=== PATIENT | male | born 1975 | race Caucasian/White ===

== ENCOUNTER 2019-05-21 12:26 | Inpatient (IN) ==
[2019-05-21] MEDS ORDERED: ASPIRIN PO ONE (12:33)
[2019-05-21] MEDS ORDERED: NITROGLYCERIN SL PRN (12:42)
--- NOTE | 2019-05-21 12:47 | PROVIDER DOCUMENTATION ---
HPI-Chest Pain - General Chief Complaint: Chest Pain Stated Complaint: CHEST PAIN Time Seen by Provider: 05/21/19 12:35 Source: patient Allergies/Adverse Reactions: Patient Allergies Allergy/AdvReac Type Severity Reaction Status Date / Time No Known Allergies Allergy Verified 05/21/19 12:30 Home Medications: Home Medication List Medication Instructions Recorded Confirmed Last Taken Type Unobtainable [Home Meds 05/21/19 05/21/19 Unknown History Unobtainable] - History of Present Illness-CP Nature of Presenting Problem: 44 y/o WM c/o lt sided CP that radiates to lt shoulder and started about 1 hr ago. Pt has hx of CAD with PR but states that todays pain is not as bad as previous pain from PR. Pt admits that he has been out of his BP meds for 2 days but continues to smoke and has remote hx of Drug use. Location: reports: other (Lt chest) Chest Pain Radiation: reports: shoulders (Lt) Quality of Pain: reports: aching Severity in ED: mild Onset/Duration: 1 hour ago Timing: still present Context/Activities at Onset: reports: light activity Modifying Factors: improves with: nothing Associated Symptoms: reports: denies symptoms Nitro Today/Relief: no nitro taken today Aspirin Treatment Today: 325 mg x 1 Prior Chest Pain/Cardiac Workup: reports: heart attack Similar Symptoms Previously?: Yes Recently Seen Here or By Another Healthcare Provider: No Review of Systems - Adult - REVIEW OF SYSTEMS - ADULT Constitutional: reports: no symptoms reported, see HPI Eyes: reports: no symptoms reported, see HPI Ears, Nose, Mouth & Throat: reports: no symptoms reported, see HPI Cardiovascular: reports: see HPI, chest pain Respiratory: reports: no symptoms reported, see HPI Gastrointestinal: reports: no symptoms reported, see HPI Genitourinary: reports: no symptoms reported, see HPI Musculoskeletal: reports: no symptoms reported, see HPI Integumentary: reports: no symptoms reported, see HPI Neurological: reports: no symptoms reported, see HPI Psychiatric: reports: no symptoms reported, see HPI Endocrine: reports: no symptoms reported, see HPI Hematologic/Lymphatic: reports: no symptoms reported, see HPI Allergic/Immunologic: reports: no symptoms reported, see HPI All Other Systems: Reviewed and Negative Past History - Adult - PAST MEDICAL HISTORY-ADULT Review of Records: reports: Nursing Assessment Review, Medications Reviewed, Social history reviewed & non-contributory. Physical Exam-General - PHYSICAL EXAM-ADULT Initial Vital Signs Reviewed: Yes - CONSTITUTIONAL General Appearance: appears well, alert, no apparent distress - EYES Eyes: PERRL/EOMI - HEAD, EARS, NOSE, MOUTH & THROAT HENMT: normocephalic/atraumatic, moist mucous membranes - NECK Neck: non-tender, full range of motion, supple, normal inspection - RESPIRATORY Respiratory: chest non-tender, lungs clear, normal breath sounds, no pleuratic chest pain, no respiratory distress, no accessory muscle use - CARDIOVASCULAR Cardiovascular: normal peripheral pulses, no edema, no gallop, no JVD, no murmur , tachycardia (130) - GASTROINTESTINAL (ABDOMEN) Abdominal Exam: normal bowel sounds, non tender, soft, no organomegaly, no pulsatile mass - LYMPHATIC Lymphatic: no adenopathy - MUSCULOSKELETAL Back Exam: normal inspection, no CVA tenderness, no vertebral tenderness Extremity: normal range of motion, non-tender, normal gait, normal inspection, no pedal edema, no calf tenderness, normal capillary refill - SKIN Integumentary: normal color, normal turgor - NEUROLOGIC Neurologic: client advisor II-XII nml as tested, grossly normal, no motor/sensory deficits - PSYCHIATRIC Psych/Mental Status: normal mood/affect, normal thought content, normal thought process, oriented x 3 - HEART Score HEART Score: History: Moderately Suspicious HEART Score: ECG: Non-Specific Repolarization Disturbance/LBBB/PM HEART Score: Age: 45-65 Years HEART Score: Risk Factors for Atherosclerotic Disease: > or = 3 Risk Factors or History of Atherosclerotic Disease HEART Score: Troponin: < or = Normal Limit Total HEART Score:: 5 Progress - PLAN OF CARE/RESULTS Progress/Plan/Lab Results: Vital Signs - 8 hr 05/21/19 12:27 05/21/19 12:30 05/21/19 12:31 Temperature 98.5 F Pulse Rate 130 H Respiratory Rate 16 Blood Pressure 197/116 O2 Sat by Pulse Oximetry 05/21/19 13:30 Temperature Pulse Rate 130 H Respiratory Rate 27 H Blood Pressure 178/133 O2 Sat by Pulse Oximetry 97 Laboratory Results - last 24 hr 05/21/19 05/21/19 05/21/19 12:40 12:40 12:40 WBC 12.82 H RBC 5.29 Hgb 16.2 Hct 48.7 MCV 92.1 MCH 30.6 MCHC 33.3 RDW Std Deviation 13.7 Plt Count 174 MPV 11.3 H Immature Gran % (Auto) 0.2 Neut % (Auto) 76.9 H Lymph % (Auto) 16.7 L [place] % (Auto) 5.6 Eos % (Auto) 0.2 Baso % (Auto) 0.4 Immature Gran # (Auto) 0.02 Neut # (Auto) 9.86 H Lymph # (Auto) 2.14 [place] # (Auto) 0.72 H Eos # (Auto) 0.03 Baso # (Auto) 0.05 PT INR PTT (Actin FS) Sodium 143 Potassium 3.8 Chloride 101 Carbon Dioxide 24 L Anion Gap 18 BUN 20 Creatinine 1.0 Estimated GFR/1.73 m2 > 60 BUN/Creatinine Ratio 20 Glucose 125 H Calculated Osmolality 289 Calcium 10.0 Total Bilirubin 0.90 AST 50 H ALT 35 Alkaline Phosphatase 97 Creatine Kinase 1359 H Creatine Kinase Index 1.4 CK-MB (CK-2) 19.36 H Troponin T [id number] Pept 732 H Total Protein 8.4 H Albumin 5.3 H Globulin 3.0 Albumin/Globulin Ratio 2.0 Urine Opiates Screen Ur Oxycodone Screen Urine Methadone Screen U Propoxyphene Qual Ur Barbituates Screen Ur Tricyclics Screen Ur Phencyclidine Scrn Ur Amphetamines Screen U Methamphetamines Scrn U Benzodiazepines Scrn Urine Cocaine Screen U Cannabinoids Screen 05/21/19 05/21/19 05/21/19 12:40 12:40 13:22 WBC RBC Hgb Hct MCV MCH MCHC RDW Std Deviation Plt Count MPV Immature Gran % (Auto) Neut % (Auto) Lymph % (Auto) [place] % (Auto) Eos % (Auto) Baso % (Auto) Immature Gran # (Auto) Neut # (Auto) Lymph # (Auto) [place] # (Auto) Eos # (Auto) Baso # (Auto) PT 13.6 INR 0.99 PTT (Actin FS) 27.5 Sodium Potassium Chloride Carbon Dioxide Anion Gap BUN Creatinine Estimated GFR/1.73 m2 BUN/Creatinine Ratio Glucose Calculated Osmolality Calcium Total Bilirubin AST ALT Alkaline Phosphatase Creatine Kinase Creatine Kinase Index CK-MB (CK-2) Troponin T < 0.010 [id number] Pept Total Protein Albumin Globulin Albumin/Globulin Ratio Urine Opiates Screen NONE DETECTED Ur Oxycodone Screen NONE DETECTED Urine Methadone Screen NONE DETECTED U Propoxyphene Qual NONE DETECTED Ur Barbituates Screen NONE DETECTED Ur Tricyclics Screen NONE DETECTED Ur Phencyclidine Scrn NONE DETECTED Ur Amphetamines Screen PRESUMPTIVE POSITIVE A U Methamphetamines Scrn PRESUMPTIVE POSITIVE A U Benzodiazepines Scrn NONE DETECTED Urine Cocaine Screen NONE DETECTED U Cannabinoids Screen NONE DETECTED Orders Category Date Time Status Cardiac Monitoring DIRECTED Care 05/21/19 12:33 Active Oxygen Therapy- ED Nursing DIRECTED Care 05/21/19 12:33 Active Saline Loc NOW Care 05/21/19 12:33 Active CHEST-2 VIEWS [RAD] Stat Exams 05/21/19 12:33 Completed CBC WITH ELECTRONIC DIFF [HEME] Stat Lab 05/21/19 12:40 Completed CK PROFILE [SP CHEM] Stat Lab 05/21/19 12:40 Completed COMPREHENSIVE METABOLIC PANEL [CHEM] Stat Lab 05/21/19 12:40 Completed PRO B-NATRIURETIC PEPTIDE Stat Lab 05/21/19 12:40 Completed PROTIME WITH INR [COAG] Stat Lab 05/21/19 12:40 Completed PTT [COAG] Stat Lab 05/21/19 12:40 Completed TROPONIN T Stat Lab 05/21/19 12:40 Completed [address]INE DRUG SCREEN PL Stat Lab 05/21/19 13:22 Completed 0.9% Sodium Chloride Inj [Ns] 1,000 ml Med 05/21/19 13:31 Active IV 125 mls/hr Aspirin Med 05/21/19 12:33 Discontinued 325 mg PO NOW ONE Labetalol Med 05/21/19 13:30 Discontinued 10 mg IV NOW ONE Nitroglycerin Sl [Nitroglycerin] Med 05/21/19 12:50 Discontinued 0.4 mg .ROUTE .STK-MED ONE Nitroglycerin Sl [Nitroglycerin] Med 05/21/19 12:42 Active 0.4 mg SL Q5M PRN PRN CP/SOB/Palp >45 yrs of Age Stat Oth 05/21/19 12:33 Ordered EKG [EKG] Stat Ther 05/21/19 12:33 Draft Result Diagrams: 05/21/19 12:40 05/21/19 12:40 - CONSULTS/PCP/HOSPITALIST Notification #1 *Consult/PCP/Hospitalist*: Kamila SALMON for Hospitalist Time Discussed: 13:58 Consult Disposition: Will see in ED, Admit Departure - Departure Date of Disposition Decision: 05/21/19 Time of Disposition Decision: 13:53 DIAGNOSIS: Chest pain, Rhabdomyolysis, Substance abuse, CHF (congestive heart failure), HTN (hypertension) Disposition: ADMITTED INPATIENT 09 Certified Medical Emergency: Emergent Condition: Fair Referrals and Follow-Ups: None,PCP [Primary Care Provider] - - Critical Care Note This patient required my direct & personal management of CC.: No Attestation - Physician/ ROSIE Attestation Patient care was provided by Advanced Practice Provider:: No The physician spent face to face time with patient:: Yes Advanced Practice Provider documentation review:: Supervising physician onsite and consulted in the evaluation and care of this patient. The physician did have a face to face encounter with the patient.
[2019-05-21] MEDS ORDERED: NITROGLYCERIN ONE (12:50)
[2019-05-21 12:55] LABS: BASO# 0.05 X1000 (0.0-0.2); BASO% 0.4 % (0.0-0.8); EOS# 0.03 X1000 (0.0-0.7); EOS% 0.2 % (0.0-10.0); HEMATOCRIT 48.7 % (42.0-52.0); HEMOGLOBIN 16.2 g/dL (14.0-18.0); IMM GRAN# 0.02 X1000 (0.0-0.04); IMM GRAN% 0.2 % (0.0-0.5); LYMPH# 2.14 X1000 (1.2-3.4); LYMPH% 16.7 % (20.5-51.1); MCH 30.6 PG (27-31); MCHC 33.3 g/dL (33-37); MCV 92.1 FL (81-99); MONO# 0.72 X1000 (0.11-0.59); MONO% 5.6 % (1.7-9.3); MPV 11.3 FL (7.4-10.4); NEUT# 9.86 X1000 (1.4-6.5); NEUT% 76.9 % (42.2-75.2); PLT 174 X1000 (130-400); RBC 5.29 XMIL (4.7-6.1); RDW 13.7 % (11.5-14.5); WBC 12.82 X1000 (4.8-10.8)
[2019-05-21 13:14] LABS: AGAP 18; ALBUMIN 5.3 g/dL (3.5-5.0); ALKALINE PHOSPHATASE 97 U/L (32-122); BUN 20 mg/dL (8-22); CHLORIDE 101 mmol/L (98-107); COSMO 289; ESTIMATED GFR > 60; GLUCOSE 125 mg/dL (70-104); GOT 50 U/L (10-34); GPT 35 U/L (10-44); POTASSIUM 3.8 mmol/L (3.5-5.1); SODIUM 143 mmol/L (136-145); TCO2 24 mmol/L (25-35); TOTAL PROTEIN 8.4 g/dL (6.3-8.3)
[2019-05-21 13:15] LABS: CK PROFILE 1359 U/L (24-204)
--- NOTE | 2019-05-21 13:15 | Diag Imaging Result Doc PS360 ---
EXAM: CHEST-2 VIEWS HISTORY: chest pain TECHNIQUE: Chest two views COMPARISON: None. FINDINGS: The lungs are well expanded. The heart is not enlarged. The vessels are not distended. There are no infiltrates. No pleural effusions. IMPRESSION: No acute abnormality. Electronically signed by Robe Angulo 05/21/2019 1:12 PM
[2019-05-21 13:19] LABS: INR 0.99; PROTIME 13.6 Seconds (11.0-16.0)
[2019-05-21 13:20] LABS: PTT 27.5 Seconds (22.3-41.8)
[2019-05-21] MEDS ORDERED: LABETALOL IV ONE (13:30)
[2019-05-21] MEDS ORDERED: NS 1,000 ML IV ONE (13:31)
[2019-05-21 13:36] LABS: CK INDEX 1.4 (0.0-2.5); CK-MB 19.36 ng/mL (0.0-5.0)
[2019-05-21 13:48] LABS: UR AMPHETAMINES QUAL PRESUMPTIVE POSITIVE (NONE DETECT); UR BARBITUATES QUAL NONE DETECTED (NONE DETECT); UR BENZODIAZEPIN QUAL NONE DETECTED (NONE DETECT); UR CANNABINOIDS QUAL NONE DETECTED (NONE DETECT); UR COCAINE QUAL NONE DETECTED (NONE DETECT); UR METHADONE QUAL NONE DETECTED (NONE DETECT); UR METHAMPHETAMINE QUAL PRESUMPTIVE POSITIVE (NONE DETECT); UR OPIATES QUAL NONE DETECTED (NONE DETECT); UR OXYCODONE QUAL NONE DETECTED (NONE DETECT); UR PCP QUAL NONE DETECTED (NONE DETECT); UR PROPOXYPHENE QUAL NONE DETECTED (NONE DETECT); UR TCA QUAL NONE DETECTED (NONE DETECT)
--- NOTE | 2019-05-21 13:52 | EKG Report ---
Test Performed on : 05/21/2019 12:28:43 PM Test Reason : chest pain Blood Pressure : / mmHG Vent. Rate : 125 BPM Atrial Rate : 125 BPM P-R Int : 146 ms QRS Dur : 088 ms QT Int : 316 ms P-R-T Axes : 050 -40 042 degrees QTc Int : 456 ms Sinus tachycardia. Possible Left atrial enlargement Left axis deviation Abnormal ECG No previous ECGs available Unconfirmed Result
[2019-05-21] MEDS ORDERED: LABETALOL IV PRN (15:47)
[2019-05-21 15:53] LABS: CK INDEX 1.4 (0.0-2.5); CK-MB 16.17 ng/mL (0.0-5.0)
--- NOTE | 2019-05-21 15:54 | EKG Report ---
Test Performed on : 05/21/2019 2:38:37 PM Test Reason : chest pain Blood Pressure : / mmHG Vent. Rate : 122 BPM Atrial Rate : 122 BPM P-R Int : 132 ms QRS Dur : 096 ms QT Int : 332 ms P-R-T Axes : 040 -47 035 degrees QTc Int : 473 ms Sinus tachycardia. Left anterior fascicular block Septal infarct , age undetermined Abnormal ECG When compared with ECG of 21-MAY-2019 12:28, (Unconfirmed) No significant change was found Unconfirmed Result
--- NOTE | 2019-05-21 16:32 | HISTORY AND PHYSICAL ---
CHIEF COMPLAINT: Chest pain. HISTORY OF PRESENT ILLNESS: This is a 44-year-old gentleman with a history of coronary artery disease status post AR, heroin abuse, hypertension. He presented to the emergency room complaining of left shoulder and chest, pain that started in his left shoulder. He describes as an aching type pain that radiated to his left chest just around his clavicular area. He stated that he could identify no exacerbating or alleviating factors. He did state he had a heart attack in the past, but this pain is not consistent with his heart attack pain. He denied any shortness of breath, any nausea, vomiting, any diaphoresis. PAST MEDICAL HISTORY: 1. Hypertension. 2. Hyperlipidemia. 3. CAD status post AR. 4. Heroin abuse. PAST SURGICAL HISTORY: Left ankle, right knee and right shoulder surgery. SOCIAL HISTORY: He smokes about a pack a day. He does drink alcohol socially. He states he is a former heroin addict, although it has been "a while" since he has used heroin last. REVIEW OF SYSTEMS: Discussed with patient with pertinent positives stated in the HPI. He denied any syncope, dizziness, any palpitations, any shortness of breath, cough, fever, chills, PND, orthopnea, any nausea, vomiting, diarrhea, constipation, black or bloody vomitus or stools, hematuria, dysuria, frequency, urgency. PHYSICAL EXAMINATION: GENERAL: This is a 44-year-old gentleman who is sitting in the stretcher in the emergency room in no distress. VITAL SIGNS: Blood pressure is 167/118 with a heart rate of 110, respirations are 16, temperature is 98.5 degrees oral with room air saturations 96 to 98 percent. EYES: Pupils are equal, round, react to light. EOMs are intact. Sclerae are anicteric. HEENT: Head is normocephalic, atraumatic. Mucous membranes are moist. NECK: Supple with trachea midline. CARDIOVASCULAR: Regular rate and rhythm. He is tachycardic. S1 and S2 appreciated. He has no JVD. No murmur. Calves are nontender, bilateral. He has no lower extremity edema with peripheral pulses palpable x4 extremities. PULMONARY: Breath sounds are clear with no increased work of breathing noted. Chest rises and falls symmetric with respiration. Chest wall is nontender to palpation. GASTROINTESTINAL: Abdomen is soft, nontender, nondistended with bowel sounds in all 4 quadrants.Genitourinary: No CVA or suprapubic tenderness. Neurologic: He is alert and oriented x3. Skin: Warm and dry. LABORATORY DATA: WBC is 12.8 with hemoglobin 16.2, hematocrit 48.7, and platelets of 174,000. Sodium 143, potassium 3.8, BUN 20, creatinine 1 with a glucose of 125. CPK is 1359 with CK-MB 19.36 and troponin less than 0.010. ProBNP is 732. Chest x-ray reveals no acute abnormality. Urine drug screen is presumptive positive for amphetamines and methamphetamines. EKG reveals sinus tachycardia at a rate of 125. Chest x-ray reveals no acute abnormality. ASSESSMENT AND PLAN: 1. Chest pain. trend cardiac profile and troponin. admit to ICU, placed on telemetry. 2. Hypertension. In the emergency room, the patient refused labetalol at 1st. With much insistence from the nurses the patient did allow them to give 5 mg of labetalol. We did discuss the importance of controlling his blood pressure. The patient did voice understanding and states "I just want to see if it goes down on its own." The patient does take medicines for his blood pressure, although he cannot remember what medication he is taking, where he gets it filled or when the last time he filled his medication was. labetalol p.r.n. and follow. 3. History of coronary as stated above. trend troponins and cardiac profile. 4. History of hyperlipidemia. Aware. The patient states he has not been on medications for quite some time. 5. Rhabdomyolysis. The patient denies any injury. He denies any strenuous work. trend CPK. IV hydration and monitor his kidney function. 6. Noncompliance. We have discussed with the patient the importance of being compliant with his regimen. 7. Tobacco use and abuse. Nicotine patch and smoking cessation has been discussed with the patient at present. The patient states that he has no intentions of stopping smoking. 8. For deep venous thrombosis prophylaxis, sequential compression devices and for gastrointestinal prophylaxis Prilosec. Plan was discussed with Dr Amin. Further treatments pending hospital. Dictated by BANDAR Haas for Damián Amin MD cc: BANDAR Haas MD [facility]
[2019-05-21] MEDS ORDERED: HALDOL IV PRN (18:30)
[2019-05-21] MEDS ORDERED: MORPHINE IV PRN (19:11)
[2019-05-21] MEDS ORDERED: ATIVAN IV PRN (19:12)
[2019-05-21] MEDS ORDERED: TYLENOL PO PRN (19:13)
[2019-05-21] MEDS ORDERED: ZOFRAN IV PRN (19:13)
--- NOTE | 2019-05-21 19:35 | HISTORY AND PHYSICAL ---
ADDENDUM REPORT: A 44-year-old male with history of CAD presenting with chest pressure in his left side of his chest, kind of crushing. He came in for evaluation. He has known CAD, reportedly had a catheterization about a year ago that looked clear. Most of his care is elsewhere. He is just visiting. He says he does smoke marijuana intermittently for pain and does not use other stimulants. However, he was tested positive for methamphetamine and amphetamine, but curiously did not test positive for marijuana. So, in any case, he says he does not use this routinely. He does report CAD history, so we will treat him for possible unstable angina, aspirin, beta-blockers, statin, and plan for stress test tomorrow to decide if he has got any major issues. For his hypertension, which is not controlled, he initially wanted to avoid medications possibly because this was methamphetamine induced, but he has taken labetalol, and we will continue to monitor. This is a [id number] encounter note with BANDAR Haas. cc: Damián Amin MD
[2019-05-21] MEDS ORDERED: LOPRESSOR PO SCH (21:00)
[2019-05-21 21:44] LABS: CK INDEX 1.4 (0.0-2.5); CK-MB 12.55 ng/mL (0.0-5.0)
[2019-05-21 21:55] VITALS: BP 164/84
[2019-05-22] MEDS ORDERED: PRILOSEC PO SCH (07:00)
[2019-05-22] MEDS ORDERED: ASPIRIN EC PO SCH (09:00)
== END 2019-05-21 23:05 | disposition left against medical advice (07) | DRG 303 ==
LOC: P.ED 12:26 → P.ICU 16:02
PROVIDERS: ATTEND Internal Medicine

== ENCOUNTER 2019-05-22 10:13 | Observation (INO) ==
[2019-05-22 11:19] LABS: BASO# 0.04 X1000 (0.0-0.2); BASO% 0.5 % (0.0-0.8); EOS# 0.05 X1000 (0.0-0.7); EOS% 0.7 % (0.0-10.0); HEMATOCRIT 45.2 % (42.0-52.0); HEMOGLOBIN 15.1 g/dL (14.0-18.0); IMM GRAN# 0.02 X1000 (0.0-0.04); IMM GRAN% 0.3 % (0.0-0.5); LYMPH# 1.96 X1000 (1.2-3.4); LYMPH% 25.6 % (20.5-51.1); MCH 30.9 PG (27-31); MCHC 33.4 g/dL (33-37); MCV 92.6 FL (81-99); MONO# 0.52 X1000 (0.11-0.59); MONO% 6.8 % (1.7-9.3); MPV 10.7 FL (7.4-10.4); NEUT# 5.07 X1000 (1.4-6.5); NEUT% 66.1 % (42.2-75.2); PLT 144 X1000 (130-400); RBC 4.88 XMIL (4.7-6.1); RDW 13.4 % (11.5-14.5); WBC 7.66 X1000 (4.8-10.8)
--- NOTE | 2019-05-22 11:21 | Diag Imaging Result Doc PS360 ---
CHEST-1 VIEW - 05/22/2019 INDICATION: chest pain COMPARISON: 05/21/2019 FINDINGS: The lungs are normally expanded and clear. Heart size and mediastinal contours are normal. No pneumothorax or pleural effusion. IMPRESSION: Negative exam. Electronically signed by Wilver Up 05/22/2019 11:19 AM
[2019-05-22 11:31] LABS: INR 1.07; PROTIME 14.1 Seconds (11.0-16.0)
[2019-05-22 11:53] LABS: AGAP 14; ALB/GLOB RATIO 1.5; ALBUMIN 4.4 g/dL (3.5-5.0); ALKALINE PHOSPHATASE 77 U/L (32-122); BUN 18 mg/dL (8-22); CHLORIDE 103 mmol/L (98-107); COSMO 281; ESTIMATED GFR > 60; GLUCOSE 119 mg/dL (70-104); GOT 46 U/L (10-34); GPT 34 U/L (10-44); POTASSIUM 3.4 mmol/L (3.5-5.1); SODIUM 139 mmol/L (136-145); TCO2 22 mmol/L (25-35); TOTAL BILIRUBIN 0.86 mg/dL (0.20-1.00); TOTAL PROTEIN 7.3 g/dL (6.3-8.3)
--- NOTE | 2019-05-22 12:25 | EKG Report ---
Test Performed on : 05/22/2019 10:41:02 AM Test Reason : chest pain Blood Pressure : / mmHG Vent. Rate : 106 BPM Atrial Rate : 106 BPM P-R Int : 132 ms QRS Dur : 098 ms QT Int : 354 ms P-R-T Axes : 042 -57 018 degrees QTc Int : 470 ms Sinus tachycardia. Pulmonary disease pattern Left anterior fascicular block Abnormal ECG When compared with ECG of 21-MAY-2019 14:38, (Unconfirmed) No significant change was found Unconfirmed Result
--- NOTE | 2019-05-22 12:32 | PROVIDER DOCUMENTATION ---
This chart was entered by Bettina Gonzalez Scribe, acting as scribe for Michael Flores MD. HPI-Chest Pain - General Stated Complaint: CP/SOB Time Seen by Provider: 05/22/19 10:26 Source: patient Allergies/Adverse Reactions: Patient Allergies Allergy/AdvReac Type Severity Reaction Status Date / Time No Known Allergies Allergy Verified 05/21/19 12:30 Home Medications: Home Medication List Medication Instructions Recorded Confirmed Last Taken Type Oxycodone HCl/Acetaminophen 10 - 325 mg PO TID 05/22/19 05/22/19 05/22/19 History [Oxycodone-Acetaminophen 10-325] 10mg - History of Present Illness-CP Nature of Presenting Problem: 44yom presents to ED by EMS cc left side chest pain that radiates down left arm and SOB that started back this morning this morning. Pt was seen in ED yesterday for same symptoms, admitted to ICU and then checked out AMA around 2300 b/c he felt better. Pt has hx of recent Meth use and has hx CADw/VA. Location: reports: central (left side) Chest Pain Radiation: reports: arms (left) Quality of Pain: reports: tightness Severity in ED: moderate Onset/Duration: this morning Timing: still present Context/Activities at Onset: reports: light activity Modifying Factors: worse with: palpation Associated Symptoms: reports: shortness of breath Similar Symptoms Previously?: Yes Recently Seen Here or By Another Healthcare Provider: Yes (was seen and admitted 05/21/19) Review of Systems - Adult - REVIEW OF SYSTEMS - ADULT Constitutional: reports: see HPI. denies: chills, fever, fatique Eyes: reports: no symptoms reported Ears, Nose, Mouth & Throat: reports: no symptoms reported Cardiovascular: reports: see HPI, chest pain Respiratory: reports: see HPI, shortness of breath Gastrointestinal: reports: see HPI. denies: diarrhea, nausea, vomiting Genitourinary: reports: no symptoms reported Musculoskeletal: reports: no symptoms reported Integumentary: reports: no symptoms reported Neurological: reports: no symptoms reported Psychiatric: reports: no symptoms reported Endocrine: reports: no symptoms reported Hematologic/Lymphatic: reports: no symptoms reported Allergic/Immunologic: reports: no symptoms reported All Other Systems: Reviewed and Negative Past History - Adult - PAST MEDICAL HISTORY-ADULT Review of Records: reports: Nursing Assessment Review, Medications Reviewed, Social history reviewed & non-contributory. Major Childhood Illnesses: reports: denies history Cardiovascular: reports: denies history Respiratory: reports: denies history Gastrointestinal: reports: denies history Obstetrical/Gynecological: reports: denies history Genitourinary: reports: denies history Musculoskeletal: reports: denies history Neurological: reports: denies history Endocrine/Immune: reports: denies history Other Conditions: reports: denies history - IMMUNIZATION STATUS Childhood Immunizations: See Nurse Assessment Flu Vaccine: See Nurse Assessment - FAMILY HISTORY Family History: reviewed, not pertinent Physical Exam-General - PHYSICAL EXAM-ADULT Initial Vital Signs Reviewed: Yes - CONSTITUTIONAL General Appearance: appears well, alert, no apparent distress. negative: combative - EYES Eyes: PERRL/EOMI, pink conjunctivae. negative: photophobia - HEAD, EARS, NOSE, MOUTH & THROAT HENMT: normocephalic/atraumatic, moist mucous membranes. negative: angioedema - NECK Neck: non-tender, full range of motion, supple - RESPIRATORY Respiratory: chest non-tender, lungs clear, normal breath sounds. negative: rhonchi, wheezing - CARDIOVASCULAR Cardiovascular: normal peripheral pulses, regular rate, rhythm, no edema. negative: bradycardia, tachycardia - GASTROINTESTINAL (ABDOMEN) Abdominal Exam: normal bowel sounds, non tender, soft, no organomegaly, no pulsatile mass. negative: distended, rebound - LYMPHATIC Lymphatic: no adenopathy - MUSCULOSKELETAL Back Exam: normal inspection, no CVA tenderness, no vertebral tenderness Extremity: normal range of motion, normal inspection, no pedal edema, no calf tenderness, normal capillary refill. negative: deformity - SKIN Integumentary: normal color, normal turgor. 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 II-XII nml as tested, grossly normal, no motor/sensory deficits - PSYCHIATRIC Psych/Mental Status: normal mood/affect, normal thought content, normal thought process, oriented x 3 - HEART Score HEART Score: History: Moderately Suspicious HEART Score: ECG: Significant ST-Deviation HEART Score: Age: 45-65 Years HEART Score: Risk Factors for Atherosclerotic Disease: 1 or 2 Risk Factors HEART Score: Troponin: < or = Normal Limit Total HEART Score:: 5 Progress - PLAN OF CARE/RESULTS Progress/Plan/Lab Results: Laboratory Results - last 24 hr 05/22/19 05/22/19 05/22/19 11:10 11:10 11:10 WBC 7.66 RBC 4.88 Hgb 15.1 Hct 45.2 MCV 92.6 MCH 30.9 MCHC 33.4 RDW Std Deviation 13.4 Plt Count 144 MPV 10.7 H Immature Gran % (Auto) 0.3 Neut % (Auto) 66.1 Lymph % (Auto) 25.6 Harris % (Auto) 6.8 Eos % (Auto) 0.7 Baso % (Auto) 0.5 Immature Gran # (Auto) 0.02 Neut # (Auto) 5.07 Lymph # (Auto) 1.96 Harris # (Auto) 0.52 Eos # (Auto) 0.05 Baso # (Auto) 0.04 PT INR PTT (Actin FS) Sodium 139 Potassium 3.4 L Chloride 103 Carbon Dioxide 22 L Anion Gap 14 BUN 18 Creatinine 1.0 Estimated GFR/1.73 m2 > 60 BUN/Creatinine Ratio 18 Glucose 119 H Calculated Osmolality 281 Calcium 9.0 Total Bilirubin 0.86 AST 46 H ALT 34 Alkaline Phosphatase 77 Troponin T [id number] Pept 558 H Total Protein 7.3 Albumin 4.4 Globulin 2.9 Albumin/Globulin Ratio 1.5 05/22/19 05/22/19 11:10 11:10 WBC RBC Hgb Hct MCV MCH MCHC RDW Std Deviation Plt Count MPV Immature Gran % (Auto) Neut % (Auto) Lymph % (Auto) Harris % (Auto) Eos % (Auto) Baso % (Auto) Immature Gran # (Auto) Neut # (Auto) Lymph # (Auto) Harris # (Auto) Eos # (Auto) Baso # (Auto) PT 14.1 INR 1.07 PTT (Actin FS) 27.0 Sodium Potassium Chloride Carbon Dioxide Anion Gap BUN Creatinine Estimated GFR/1.73 m2 BUN/Creatinine Ratio Glucose Calculated Osmolality Calcium Total Bilirubin AST ALT Alkaline Phosphatase Troponin T < 0.010 [id number]-[id number] Pept Total Protein Albumin Globulin Albumin/Globulin Ratio Orders Category Date Time Status CHEST-1 VIEW [RAD] Stat Exams 05/22/19 10:30 Completed CBC WITH ELECTRONIC DIFF [HEME] Stat Lab 05/22/19 11:10 Completed COMPREHENSIVE METABOLIC PANEL [CHEM] Stat Lab 05/22/19 11:10 Completed PRO B-NATRIURETIC PEPTIDE Stat Lab 05/22/19 11:10 Completed PROTIME WITH INR [COAG] Stat Lab 05/22/19 11:10 Completed PTT [COAG] Stat Lab 05/22/19 11:10 Completed TROPONIN T Stat Lab 05/22/19 11:10 Completed URINE DRUG SCREEN Stat Lab 05/22/19 12:29 Ordered EKG [EKG] Stat Ther 05/22/19 10:30 Draft Result Diagrams: 05/22/19 11:10 05/22/19 11:10 - EKG 1 Time of EKG reading by physician:: 10:41 EKG Read and Signed by:: Michael Flores EKG Interpretation (*Must complete 3 of following elements*): Abnormal (pulmonary disease pattern left anterior fascicular block) Rate: 106 Rhythm: sinus tachycardia MS Interval: normal ST Wave: normal - XRAY 1 XRAY: Bilateral XRAY Study: Chest Impression: See EMR Report (IMPRESSION: Negative exam. 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 These instructions are being provided to you so you can have an understanding of how to care for yourself upon discharge. Upon discharge from the Emergency Department, you are responsible for making arrangements for follow-up care by a physician of your choice. Take all prescribed medications as directed. Return to the Emergency Department immediately for any new or worsening symptoms. You may call the Physician Referral phone number at [phone] to obtain a list of Physicians who are taking new patients. Referrals and Follow-Ups: None,PCP [Primary Care Provider] - - Critical Care Note This patient required my direct & personal management of CC.: No Attestation - Physician/ ROSIE Attestation Patient care was provided by Advanced Practice Provider:: No The physician spent face to face time with patient:: Yes Advanced Practice Provider documentation review:: Supervising physician onsite and consulted in the evaluation and care of this patient. The physician did have a face to face encounter with the patient. This chart was documented by the indicated scribe, (Bettina Gonzalez, Paul) and accurately reflects the services I performed and decisions made by me, Michael Flores MD, as attested by the provider's signature.
[2019-05-22 13:14] LABS: UR AMPHETAMINES QUAL NONE DETECTED (NONE DETECT); UR BARBITUATES QUAL NONE DETECTED (NONE DETECT); UR BENZODIAZEPIN QUAL NONE DETECTED (NONE DETECT); UR CANNABINOIDS QUAL NONE DETECTED (NONE DETECT); UR COCAINE QUAL NONE DETECTED (NONE DETECT); UR METHADONE QUAL NONE DETECTED (NONE DETECT); UR OPIATES QUAL NONE DETECTED (NONE DETECT); UR OXYCODONE QUAL NONE DETECTED (NONE DETECT); UR PCP QUAL NONE DETECTED (NONE DETECT)
[2019-05-22] MEDS ORDERED: TYLENOL PO PRN (13:45)
[2019-05-22] MEDS ORDERED: ZOFRAN IV PRN (13:45)
[2019-05-22] MEDS ORDERED: NITROGLYCERIN SL PRN (13:45)
[2019-05-22] MEDS ORDERED: MORPHINE IV PRN (14:52)
[2019-05-22] MEDS ORDERED: PERCOCET-10 PO PRN (14:53)
[2019-05-22 14:54] VITALS: BP 148/105
[2019-05-22] MEDS ORDERED: NITROGLYCERIN TOP SCH (15:00)
[2019-05-22] MEDS ORDERED: LOPRESSOR PO ONE (15:45)
--- NOTE | 2019-05-22 16:08 | HISTORY AND PHYSICAL ---
PRIMARY CARE PHYSICIAN: Dr. Yu in [place]. CERTIFIED PHLEBOTOMIST: Dr. Hall in [place]. CHIEF COMPLAINT: Chest pain. HISTORY OF PRESENT ILLNESS: Mr. Francisco is a 44-year-old gentleman with a past medical history of coronary artery disease status post HI in 2005. He reported heroin abuse, hypertension. Recently admitted to our service on 05/21/2019 with complaints of chest pain. However, he left AMA shortly before midnight, stating that his pain had resolved. He reports to me today that his chest pain had continued since yesterday. It radiated to his left arm. He reported that his HI was in 2005 and this was not like his previous HI. He states last time he choked, aspirated, and , and underwent an angioplasty in [place] in [place]. At [place] yesterday he did test positive for methamphetamines and amphetamines. However, today his UDS is clean. We will admit him to telemetry. Make him n.p.o. after midnight. Set him up for a stress test, echocardiogram. PAST MEDICAL HISTORY: 1. Previous HI in 2005. 2. Hypertension. 3. Hyperlipidemia. 4. Heroin use in the past. Admitted to [facility] but denied amphetamines and methamphetamines. 5. Six broken ribs and a punctured lung back in November of 2018 after [place] PAST SURGICAL HISTORY: 1. Left ankle. 2. Right knee. 3. Right shoulder. SOCIAL HISTORY: He is a pack per day smoker. Drinks alcohol socially. Former heroin addict. Admitted to [facility]; however, it is negative. Yesterday his UDS was positive for methamphetamines and amphetamines, which he denied. He is from [place]. He is here visiting his cousin. ALLERGIES: No known drug allergies. HOME MEDICATIONS: Oxycodone 10 mg p.o. t.i.d. REVIEW OF SYSTEMS: Completely negative except for those mentioned in HPI. PHYSICAL EXAMINATION: VITAL SIGNS: Temperature is 97.6 degrees, heart rate 100, respirations 22, blood pressure 148/105, O2 is 90% on room air. GENERAL: Mr. Francisco is an anxious-appearing, 44-year-old male who is sitting up in the stretcher, in no acute distress. He is wanting to get up and walk. HEENT: Atraumatic, normocephalic. PERRL. NECK: Supple. Trachea midline. CARDIOVASCULAR: S1, S2 appreciated. No murmurs, gallops, rubs noted. RESPIRATORY: Lung sounds clear bilaterally. GI: Soft, nontender, nondistended. Positive bowel sounds 4 quadrants. EXTREMITIES: Lower extremities were negative for edema. NEUROLOGIC: No focal deficits noted. LABORATORY DATA: White count 7, hemoglobin and hematocrit 15 and 45, platelet count 144,000. Sodium 139, potassium 3.4, BUN 18, creatinine 1.0, blood glucose is 119. Troponin was less than 0.010. ProBNP was 558, down from yesterday at 732. UDS is currently negative. Toxicology screen yesterday was positive for methamphetamine. Chest x-ray: Negative exam. EKG: Sinus tachycardia, pulmonary disease pattern. ASSESSMENT AND PLAN: 1. Chest pain in a patient with known coronary artery disease, myocardial infarction, status post angioplasty in 2005. He does not feel like this pain is like his previous HI. He states he had a clean heart catheterization last year. We will continue to trend cardiac enzymes. Check an echocardiogram. Make him n.p.o. after midnight. Set him up for a stress test in the a.m. Check a lipid profile. Consult Cardiology given his history. 2. Hypertension. Not on any home medications. 3. Hyperlipidemia. He is not on a statin. 4. Heroin abuse in the past. 5. Methamphetamine positive yesterday. 6. Further recommendations to follow physician evaluation, laboratory and diagnostic data. Dictated by BANDAR Coyle for Damián Amin MD cc: Damián Amin MD
[2019-05-22 16:16] LABS: CK-MB 26.79 ng/mL (0.0-5.0)
[2019-05-22] MEDS ORDERED: ATIVAN IV PRN (16:45)
[2019-05-22] MEDS ORDERED: NS 1,000 ML IV SCH (17:00)
--- NOTE | 2019-05-22 17:11 | HISTORY AND PHYSICAL ---
ADDENDUM: This is a 44-year-old male, you can see my note from yesterday because it really has not changed much, who had chest pain. He left AMA yesterday. I do not know, something about the bed being uncomfortable. In any case, the patient had persistent chest pain and he came in today. He does report a history of CAD. Apparently, he had heroin use in the past. He did not tell me that yesterday. He was positive for amphetamines yesterday but not today. He reported to me yesterday the chest pain was similar to previous MIs, although today he expounded his story and said that it was not as consistent. But Dr. Granados ordered an echo, but we did order stress test, Cardiology consult. I put him on a beta juancho. He is on aspirin. He probably should be on a statin if he truly has CAD. We will check his lipids and anticipate if test and workup is negative, discharge follow up with his primary care doctor, advised against that. Although it looks like based on his data, he does not have positive troponins despite having some early rhabdomyolysis. I will go ahead and give him some normal saline just to kind to help with rhabdomyolysis and we will follow. cc: Damián Amin MD
--- NOTE | 2019-05-22 20:50 | ECHO REPORT ---
ORDER DATE: 05/22/2019 MEASUREMENTS: Aortic root 2.8, left atrium 3.4. SUMMARY: 1. Technically difficult study due to limited acoustic window quality. 2. The aortic valve is without evidence of structural abnormality and opens adequately on 2- dimensional images. The peak gradient across the aortic valve is less than 10 mmHg. Mitral and tricuspid valves are without evidence of structural abnormality, while pulmonic valve is not well demonstrated. There is trace mitral regurgitation and trace tricuspid regurgitation. The aortic root is normal in size. 3. Normal left ventricular chamber size with mild concentric left ventricular hypertrophy is suggested on 2-dimensional images. The left ventricle appears hyperdynamic, with estimated left ventricular ejection fraction at least 75%. No regional wall motion abnormalities are evident. Doppler suggests grade 1 left ventricular diastolic dysfunction. The left atrium, right atrium and right ventricle are normal in size, with grossly preserved right ventricular systolic function. 4. No pericardial effusion. 5. Appearance of the inferior vena cava suggests normal central venous pressure. CONCLUSIONS: 1. Technically difficult study. 2. No significant valvular abnormality evident. 3. Mild concentric left ventricular hypertrophy with hyperdynamic left ventricle, and estimated left ventricular ejection fraction at least 75%. 4. Grade 1 left ventricular diastolic function is suggested. cc: MD Shade Maurer MD
[2019-05-22] MEDS ORDERED: LIPITOR PO SCH (21:00)
[2019-05-22] MEDS ORDERED: LOPRESSOR PO SCH (21:00)
[2019-05-23] MEDS ORDERED: PRILOSEC PO SCH (07:00)
[2019-05-23] MEDS ORDERED: ASPIRIN PO SCH (09:00)
--- NOTE | 2019-06-25 06:22 | DISCHARGE SUMMARY ---
ADMISSION DATE: 05/22/2019 DISCHARGE DATE: 05/22/2019 DISCHARGE DIAGNOSIS: Chest pain with possible acute coronary syndrome. HOSPITAL COURSE: Briefly this is a 44-year-old male who came in for evaluation for chest pain. He had been admitted the night before. He left AMA. He has a history of CAD. He has a history of hypertension and heroin abuse. He had chest pain noted. The patient was placed in observation. Cardiology was consulted. He was placed on medications for treatment. Echo showed normal EF. EF 75%. No wall motion abnormalities. Diastolic dysfunction. PLAN: Transfer the patient I believe to [facility] for evaluation but the patient refused to stay inpatient. He took his IV out and he left AMA and we were planning to transfer him on the to [facility] for evaluation but he declined any further treatment. This happened multiple times previously. Initially, we were going to leave him AMA, but then he agreed to stay for evaluation and then refused home medications. Acquiesced, he would need to be on aspirin, stat beta juancho, but patient refused further treatment. cc: Damián Amin MD
== END 2019-05-22 21:11 | disposition left against medical advice (07) ==
LOC: SUPCPDRO → EDIPHOLD 10:13 → ED 10:13 → 3N 14:45
PROVIDERS: ATTEND Internal Medicine